=== PATIENT | female | born 1980 | race Two or more races ===

== ENCOUNTER 2016-06-10 12:13 | Emergency (ER) | payer MEDICAID ==
--- NOTE | 2016-06-10 12:58 | ED Physician Chart ---
Chief Complaint/HPI - Patient Information Date Seen:: 06/10/16 Time Seen:: 12:58 Chief Complaint:: BILATERAL KNEE PAIN History of Present Illness:: THIS IS A 36 YO FEMALE WITH A HISTORY OF FALLING ON BOTH KNEES SEVERAL MONTHS AGO. SHE IS NOW HAVING LEFT KNEE PAIN SO BAD THAT SHE CAN WALK ON IT. THE KNEE HAS BEEN SWOLLEN ON AND OFF LATELY. SHE DENIES HYPERTENSION, DIABETES AND HEART DISEASE. SHE STATES THAT FOR MANY YEARS SHE HAS HAD LOWER BACK PAIN. Allergies:: Allergies Allergy/AdvReac Type Severity Reaction Status Date / Time No Known Allergies Allergy Verified 06/10/16 12:50 Historian:: Patient Review:: Nurse's Note Reviewed Review of Systems - Review of Systems General/Constitutional: No fever, No chills, No weight loss, No weakness, No diaphoresis, No edema, No loss of appetite Skin: No skin lesions, No rash, No bruising Head: No headache, No light-headedness Eyes: No loss of vision, No pain, No diplopia ENT: No earache, No nasal drainage, No sore throat, No tinnitus Neck: No neck pain, No swelling, No thyromegaly, No stiffness, No mass noted Cardio Vascular: No chest pain, No palpitations, No PND, No orthopnea, No edema Pulmonary: No SOB, No cough, No sputum, No wheezing GI: No nausea, No vomiting, No diarrhea, No pain, No melena, No hematochezia, No constipation, No hematemesis G/U: No dysuria, No frequency, No hematuria Musculoskeletal: Bone or joint pain (THERE IS PAIN AND SWELLING OF THE LEFT KNEE.), No back pain, No muscle pain Endocrine: No polyuria, No polydipsia Psychiatric: No prior psych history, No depression, No anxiety, No suicidal ideation Hematopoietic: No bruising, No lymphadenopathy Allergic/Immuno: No urticaria, No angioedema Neurological: No syncope, No focal symptoms, No weakness, No paresthesia, No headache, No seizure, No dizziness, No confusion, No vertigo Past Medical History - Past Medical History Obtainable: Yes Past Medical History: Other (BACK PAIN) Family History: None Social History: Smoker, Non Smoker, No Alcohol, No Drug Use Surgical History: None Psychiatricy History: None Medication: Reviewed Family Medical History - Family Member Mother History Unknown: Yes Physical Exam - Physical Examination General/Constitutional: Awake, Well-developed, well-nourished, Alert, No distress, GCS 15, Non-toxic appearing, Ambulatory Head: Atraumatic Eyes: Lids, conjuctiva normal, PERRL, EOMI Skin: Nl inspection, No rash, No skin lesions, No ecchymosis, Well hydrated, No lymphadenopathy ENMT: External ears, nose nl, Nasal exam nl, Lips, teeth, gums nl Neck: Nontender, Full ROM w/o pain, No JVD, No nuchal rigidity, No bruit, No mass, No stridor Respiratory: Nl effort/Exclusion, Clear to Auscultation, No Wheeze/Rhonchi/Rales Cardio Vascular: RRR, No murmur, gallop, rubs, NL S1 S2 GI: No tenderness/rebounding/guarding, No organomegaly, No hernia, Normal BS's, Nondistended, No mass/bruits, No McBurney tenderness : No CVA tenderness Extremities: normal strength in all extremities, No edema, Normal digits & nails Other Extremities comments:: THE LEFT KNEE IS SWOLLEN AND TENDER. THE RANGE OF MOTION IS PAINFUL WITH LIMITED FLEXION AND EXTENSION. Neuro/Psych: Alert/oriented, DTR's symmetric, Normal sensory exam, Normal motor strength, Judgement/insight normal, Mood normal, Normal gait, No focal deficits Misc: normal gait, Normal back, No paraspinal tenderness Labs/Radiology/EKG Results - Radiology Results Results: THERE ARE DEGENERATIVE CHANGES IN BOTH KNEES AND NO LOOSE BODY SEEN. ED Septic Shock - . Is Septic Shock (SBP<90, OR Lactate>4 mmol\L) present?: No Reassessment (Disposition) - Reassessment Reassessment Condition:: Improved - Aftercare/Follow up Instructions Aftercare/Follow-Up Instructions:: Counseled pt regarding lab results/diagnosis & need follow up, Refer to Discharge Instructions, Counseled pt & family regarding lab results/diagnosis & need follow up - Patient Disposition Discharge/Transfer:: Home
--- NOTE | 2016-06-10 16:23 | Diagnostic Imaging Report ---
Left knee (3 views) HISTORY: Pain Minimal spur formation noted about the lateral femoral condyle and the tibial spines. No acute abnormalities. No fractures. IMPRESSION: 1. No acute abnormalities 2. Mild degenerative changes
--- NOTE | 2016-06-10 16:24 | Diagnostic Imaging Report ---
Right knee (3 views) HISTORY: Pain No acute abnormalities. No fractures. Small spur formation noted about the lateral femoral condyle. IMPRESSION: No acute abnormalities
== END 2016-06-10 14:10 | disposition home or self-care (01) ==
LOC: ER 12:13
DX: M12.562 Traumatic arthropathy, left knee (principal); M12.561 Traumatic arthropathy, right knee
CPT/HCPCS: 73562-TC-LT; 73562-TC-RT; 81025-TC; Z7502

== ENCOUNTER 2018-02-24 13:52 | Inpatient (IN) | payer MEDICAID ==
[2018-02-24] MEDS ORDERED: Sodium Chloride 0.9% 1,000 ML IV ONE (14:48)
[2018-02-24 15:07] LABS: % EOSINOPHILS 0.7 % (0.0-5.0); % MONOCYTES 5.5 % (2.0-10.0); % NEUTROPHILS 86.8 % (40.0-80.0); EOSINOPHILE ABSOLUTE 0.1 Th/cmm (0.1-0.4); HEMATOCRIT 37.7 % (41.0-60); HEMOGLOBIN 12.8 gm/dL (12-16); MEAN CORPUSCULAR HEMOGLOBIN 28.5 pg (27.0-31.0); MEAN CORPUSCULAR HGB CONC 33.9 pg (28.0-36.0); MEAN PLATELET VOLUME 9.2 fl; MONOCYTE ABSOLUTE 0.8 Th/cmm (0.3-1.0); NEUTROPHILE ABSOLUTE 12.4 Th/cmm (1.8-8.0); PLATELET COUNT 214 Th/cmm (150-400); RED BLOOD COUNT 4.49 Mil/cmm (3.80-5.10); RED CELL DISTRIBUTION WIDTH 14.7 % (11.5-20.0); WHITE BLOOD COUNT 14.3 Th/cmm (4.8-10.8)
[2018-02-24 15:21] LABS: INR 0.98 (0.5-1.4); PROTHROMBIN TIME (TEST) 10.2 SECONDS (9.5-11.5)
--- NOTE | 2018-02-24 15:43 | ED Physician Chart ---
ED Chief Complaint/HPI - Patient Information Date Seen:: 02/24/18 Time Seen:: 14:50 Chief Complaint:: Fever History of Present Illness:: onset x 3 days of fever, cough, hemoptysis, dyspnea, Abdominal Pain, S/T, and congestion; pt denies trauma, H/As, E/As, C/P, A/N/V/D/C, chills, or urinary s/s Allergies:: Allergies Allergy/AdvReac Type Severity Reaction Status Date / Time No Known Allergies Allergy Verified 06/10/16 12:50 Vitals:: Vital Signs - 8 hr 02/24/18 14:58 Temp 100.2 F HR 104 RR 21 BP 122/90 O2 Sat % 97 Historian:: Patient Review:: Nurse's Note Reviewed, Old Chart Reviewed <Kaiden Schwarz - Last Filed: 02/24/18 17:33> - Patient Information Allergies:: Allergies Allergy/AdvReac Type Severity Reaction Status Date / Time No Known Allergies Allergy Verified 06/10/16 12:50 <Jerel Vila - Last Filed: 02/25/18 08:30> ED Review of Systems - Review of Systems General/Constitutional: Fever, No chills, No weight loss, No weakness, No diaphoresis, No edema, No loss of appetite Skin: No skin lesions, No rash, No bruising Head: No headache, No light-headedness Eyes: No loss of vision, No pain, No diplopia ENT: No earache, Nasal drainage, Sore throat, No tinnitus Neck: No neck pain, No swelling, No thyromegaly, No stiffness, No mass noted Cardio Vascular: No chest pain, No palpitations, No PND, No orthopnea, No edema Pulmonary: SOB, Cough, No sputum, No wheezing GI: No nausea, No vomiting, No diarrhea, Pain, No melena, No hematochezia, No constipation, No hematemesis G/U: No dysuria, No frequency, No hematuria [employer] Tnt: No vaginal discharge, No abnormal vaginal bleed, No contraction Musculoskeletal: No bone or joint pain, No back pain, No muscle pain Endocrine: No polyuria, No polydipsia Psychiatric: No prior psych history, No depression, No anxiety, No suicidal ideation, No homicidal ideation, No auditory hallucination, No visual hallucination Hematopoietic: No bruising, No lymphadenopathy Allergic/Immuno: No urticaria, No angioedema Neurological: No syncope, No focal symptoms, No weakness, No paresthesia, No headache, No seizure, No dizziness, No confusion, No vertigo <Kaiden Schwarz Filed: 02/24/18 17:33> ED Past Medical History - Past Medical History Obtainable: Yes Past Medical History: No significant medical hx Family History: HTN Social History: Non Smoker, No Alcohol, No Drug Use, Surgical History: None Psychiatricy History: None Medication: Reviewed <Kaiden Schwarz Filed: 02/24/18 17:33> Family Medical History - Family Member Mother History Unknown: Yes <Kaiden Schwarz Filed: 02/24/18 17:33> ED Physical Exam - Physical Examination General/Constitutional: Awake, Well-developed, well-nourished, Alert, No distress, GCS 15, Non-toxic appearing, Ambulatory Head: Atraumatic Eyes: Lids, conjuctiva normal, PERRL, EOMI Skin: Nl inspection, No rash, No skin lesions, No ecchymosis, Well hydrated, No lymphadenopathy ENMT: External ears, nose nl, TM canals nl, Nasal exam nl, Lips, teeth, gums nl , Tonsils nl Other ENMT comments:: Pharynx: Injected Neck: Nontender, Full ROM w/o pain, No JVD, No nuchal rigidity, No bruit, No mass, No stridor Respiratory: Nl effort/Exclusion Other Respiratory comments:: Lungs: + Rales and Rhonchi Cardio Vascular: RRR, No murmur, gallop, rubs, NL S1 S2, Carotid/Femoral/Distal pulses equal bilaterally GI: No tenderness/rebounding/guarding, No organomegaly, No hernia, Normal BS's, Nondistended, No mass/bruits, No McBurney tenderness : No CVA tenderness Extremities: No tenderness or effusion, Full ROM, normal strength in all extremities, No edema, Normal digits & nails Neuro/Psych: Alert/oriented, DTR's symmetric, Normal sensory exam, Normal motor strength, Judgement/insight normal, Mood normal, Normal gait, No focal deficits Misc: Normal back, No paraspinal tenderness <Kaiden Schwarz - Last Filed: 02/24/18 17:33> ED Labs/Radiology/EKG Results - Lab Results Results: Laboratory Tests 02/24/18 02/24/18 02/24/18 15:00 15:00 15:00 WBC 14.3 H RBC 4.49 Hgb 12.8 Hct 37.7 L MCV 84.0 MCH 28.5 MCHC Differential 33.9 RDW 14.7 Plt Count 214 MPV 9.2 Neutrophils % 86.8 H Lymphocytes % 7.0 L Monocytes % 5.5 Eosinophils % 0.7 Basophils % 0.0 PT 10.2 INR 0.98 B-Natriuretic Peptide 1030.0 H Serum , Qual 02/24/18 15:00 WBC RBC Hgb Hct MCV MCH MCHC Differential RDW Plt Count MPV Neutrophils % Lymphocytes % Monocytes % Eosinophils % Basophils % PT INR B-Natriuretic Peptide Serum , Qual NEGATIVE - Radiology Results Comments:: CXR: CM; CHF; + Infiltrate; Right Pleural Effusion; + Ileus - EKG Interpretations EKG Time:: 15:31 Rate & Rhythm: 111; ST Comments:: LVH; non-specific st-t changes <Kaiden Schwarz - Last Filed: 02/24/18 17:33> - Lab Results Results: Laboratory Tests 02/24/18 02/24/18 02/24/18 15:00 15:00 15:00 WBC 14.3 H RBC 4.49 Hgb 12.8 Hct 37.7 L MCV 84.0 MCH 28.5 MCHC Differential 33.9 RDW 14.7 Plt Count 214 MPV 9.2 Neutrophils % 86.8 H Lymphocytes % 7.0 L Monocytes % 5.5 Eosinophils % 0.7 Basophils % 0.0 PT 10.2 INR 0.98 D-Dimer 477 H Sodium 139 Potassium 3.6 Chloride 105 Carbon Dioxide 22.6 Anion Gap 15.0 BUN 11 Creatinine 0.6 Est GFR ( Amer) > 60.0 Est GFR (Non-Af Amer) > 60.0 BUN/Creatinine Ratio 18.3 Glucose 107 H Calcium 8.6 Total Bilirubin 1.4 H AST 39 ALT 40 Alkaline Phosphatase 53 Creatine Kinase 1838 H CK-MB (CK-2) 13.9 H Troponin I B-Natriuretic Peptide Total Protein 6.3 Albumin 3.7 Globulin 2.6 Albumin/Globulin Ratio 1.4 Triglycerides 102 Cholesterol 160 LDL Cholesterol Direct 103 HDL Cholesterol 48 Amylase Lipase Serum , Qual Urine Source Urine Color Urine Clarity Urine pH Ur Specific [place] Urine Protein Urine Glucose (UA) Urine Ketones Urine Blood Urine Nitrate Urine Bilirubin Urine Urobilinogen Ur Leukocyte Esterase Urine RBC Urine WBC Ur Epithelial Cells Urine Bacteria Urine Test POC Ur Test 02/24/18 02/24/18 02/24/18 15:00 15:00 15:00 WBC RBC Hgb Hct MCV MCH MCHC Differential RDW Plt Count MPV Neutrophils % Lymphocytes % Monocytes % Eosinophils % Basophils % PT INR D-Dimer Sodium Potassium Chloride Carbon Dioxide Anion Gap BUN Creatinine Est GFR ( Amer) Est GFR (Non-Af Amer) BUN/Creatinine Ratio Glucose Calcium Total Bilirubin AST ALT Alkaline Phosphatase Creatine Kinase CK-MB (CK-2) Troponin I 0.19 H* B-Natriuretic Peptide 1030.0 H Total Protein Albumin Globulin Albumin/Globulin Ratio Triglycerides Cholesterol LDL Cholesterol Direct HDL Cholesterol Amylase 16 L Lipase 5 L Serum , Qual Urine Source Urine Color Urine Clarity Urine pH Ur Specific [place] Urine Protein Urine Glucose (UA) Urine Ketones Urine Blood Urine Nitrate Urine Bilirubin Urine Urobilinogen Ur Leukocyte Esterase Urine RBC Urine WBC Ur Epithelial Cells Urine Bacteria Urine Test POC Ur Test 02/24/18 02/24/18 02/24/18 15:00 15:47 15:47 WBC RBC Hgb Hct MCV MCH MCHC Differential RDW Plt Count MPV Neutrophils % Lymphocytes % Monocytes % Eosinophils % Basophils % PT INR D-Dimer Sodium Potassium Chloride Carbon Dioxide Anion Gap BUN Creatinine Est GFR ( Amer) Est GFR (Non-Af Amer) BUN/Creatinine Ratio Glucose Calcium Total Bilirubin AST ALT Alkaline Phosphatase Creatine Kinase CK-MB (CK-2) Troponin I B-Natriuretic Peptide Total Protein Albumin Globulin Albumin/Globulin Ratio Triglycerides Cholesterol LDL Cholesterol Direct HDL Cholesterol Amylase Lipase Serum , Qual NEGATIVE Urine Source CLEAN C Urine Color YELLOW Urine Clarity CLEAR Urine pH 6.0 Ur Specific [place] 1.020 Urine Protein 100 H Urine Glucose (UA) NEGATIVE Urine Ketones 15 H Urine Blood SMALL H Urine Nitrate NEGATIVE Urine Bilirubin NEGATIVE Urine Urobilinogen 0.2 Ur Leukocyte Esterase TRACE H Urine RBC 2-5 Urine WBC 0-2 Ur Epithelial Cells MODERATE Urine Bacteria 1+ H Urine Test NEGATIVE POC Ur Test 02/24/18 15:52 WBC RBC Hgb Hct MCV MCH MCHC Differential RDW Plt Count MPV Neutrophils % Lymphocytes % Monocytes % Eosinophils % Basophils % PT INR D-Dimer Sodium Potassium Chloride Carbon Dioxide Anion Gap BUN Creatinine Est GFR ( Amer) Est GFR (Non-Af Amer) BUN/Creatinine Ratio Glucose Calcium Total Bilirubin AST ALT Alkaline Phosphatase Creatine Kinase CK-MB (CK-2) Troponin I B-Natriuretic Peptide Total Protein Albumin Globulin Albumin/Globulin Ratio Triglycerides Cholesterol LDL Cholesterol Direct HDL Cholesterol Amylase Lipase Serum , Qual Urine Source Urine Color Urine Clarity Urine pH Ur Specific [place] Urine Protein Urine Glucose (UA) Urine Ketones Urine Blood Urine Nitrate Urine Bilirubin Urine Urobilinogen Ur Leukocyte Esterase Urine RBC Urine WBC Ur Epithelial Cells Urine Bacteria Urine Test POC Ur Test Negative <Jerel Vila - Last Filed: 02/25/18 08:30> ED Septic Shock - . Is Septic Shock (SBP<90, OR Lactate>4 mmol\L) present?: No - <6hrs of presentation: Vital Signs: Vital Signs - 8 hr 02/24/18 14:58 Temp 100.2 F HR 104 RR 21 BP 122/90 O2 Sat % 97 <Kaiden Schwarz - Last Filed: 02/24/18 17:33> - . Is Septic Shock (SBP<90, OR Lactate>4 mmol\L) present?: No <Jerel Vila - Last Filed: 02/25/18 08:30> ED Reassessment (Disposition) - Reassessment Reassessment Condition:: Improved - Diagnosis Diagnosis:: Dx: Abdominal Pain; Pharyngitis; Fever; Bronchitis; CHF; Leukocytosis; Sepsis; UTI; PNA; Pleural Effusion; Ileus - Aftercare/Follow up Instructions Aftercare/Follow-Up Instructions:: Counseled pt regarding lab results/diagnosis & need follow up, Counseled pt & family regarding lab results/diagnosis & need follow up <Kaiden Schwarz - Last Filed: 02/24/18 17:33> - Reassessment Reassessment:: After treatments, patient continued to have cough and abdominal pain. - Patient Disposition Admitting Medical Physician:: Anand Bassett <Jerel Vila - Last Filed: 02/25/18 08:30>
[2018-02-24 15:51] LABS: DDIMER QUANT 477 ng/mL (100-400)
[2018-02-24 15:54] LABS: ALB/GLOB RATIO 1.4 (1.0-1.8); ALBUMIN 3.7 gm/dL (3.7-5.3); ALKALINE PHOSPHATASE 53 U/L (34-104); BILIRUBIN,TOTAL 1.4 mg/dL (0.3-1.0); BUN - UREA NITROGEN 11 mg/dL (7-25); CALCIUM SERUM 8.6 mg/dL (8.6-10.3); CARBON DIOXIDE 22.6 mEq/L (21.0-31.0); CHLORIDE 105 mEq/L (98-107); CHOLESTEROL 160 mg/dL (<200); CREATININE - SERUM 0.6 mg/dL (0.6-1.2); CREATININE KINASE 1838 U/L (30-223); GFR AFRICAN-AMERICAN > 60.0 ml/min (>90); GFR NON AFRICAN-AMERICAN > 60.0 ml/min; GLUCOSE 107 mg/dL (70-105); HDL -HIGH DENSITY LIPOPROTEIN 48 mg/dL (23-92); POTASSIUM SERUM 3.6 mEq/L (3.5-5.1); SGOT 39 U/L (13-39); SGPT/ALT 40 U/L (7-52); SODIUM SERUM 139 mEq/L (136-145); TOTAL PROTEIN,SERUM 6.3 gm/dL (6.0-8.3); TRIGLYCERIDES 102 mg/dL (<150)
[2018-02-24 16:11] LABS: URINE SOURCE CLEAN C
[2018-02-24 16:13] LABS: URINE BILIRUBIN NEGATIVE (NEGATIVE); URINE BLOOD SMALL (NEGATIVE); URINE GLUCOSE (UA) NEGATIVE (NEGATIVE); URINE KETONE 15 mg/dL (NEGATIVE); URINE LEUKOCYTE ESTERASE TRACE (NEGATIVE); URINE MICROSCOPIC INDICATED? YES; URINE NITRATE NEGATIVE (NEGATIVE); URINE PROTEIN 100 mg/dL (NEGATIVE); URINE UROBILINOGEN 0.2 E.U./dL (0.2 - 1.0)
[2018-02-24] MEDS ORDERED: IOHEXOL 350mgI/mL 150mL IV ONE (16:17)
[2018-02-24] MEDS ORDERED: cefTRIAXone 1 GM in Sodium Chloride 0.9% 50 ML IV ONE (16:23)
[2018-02-24 16:30] LABS: URINE CLARITY CLEAR (CLEAR); URINE COLOR YELLOW
[2018-02-24 17:06] LABS: URINE BACTERIA 1+ /hpf (NONE SEEN); URINE EPITHELIAL CELLS MODERATE /lpf (FEW); URINE WBC 0-2 /hpf (0-5)
[2018-02-24 17:59] LABS: AMYLASE SERUM 16 U/L (29-103); LIPASE 5 U/L (11-82)
[2018-02-24] MEDS: guaiFENesin 200 MG/10 ML UDC PO PRN (22:22)
[2018-02-24] MEDS: D5-0.45NS 1,000 ML IV SCH (23:14)
[2018-02-25] MEDS: Albuterol Nebulizer 2.5mg/3mL HHN PRN ×2 (02:13→15:53)
[2018-02-25 05:52] LABS: % BASOPHILS 1.9 % (0.0-2.0); % EOSINOPHILS 1.5 % (0.0-5.0); % LYMPHOCYTES 10.1 % (20.0-50.0); % MONOCYTES 4.8 % (2.0-10.0); % NEUTROPHILS 81.7 % (40.0-80.0); BASOPHILE ABSOLUTE 0.2 Th/cumm (0-0.2); EOSINOPHILE ABSOLUTE 0.2 Th/cmm (0.1-0.4); HEMATOCRIT 34.7 % (41.0-60); HEMOGLOBIN 11.4 gm/dL (12-16); LYMPHOCYTE ABSOLUTE 1.1 Th/cmm (1.5-3.0); MEAN CELL VOLUME 83.6 fl (81-100); MEAN CORPUSCULAR HEMOGLOBIN 27.5 pg (27.0-31.0); MEAN CORPUSCULAR HGB CONC 32.9 pg (28.0-36.0); MEAN PLATELET VOLUME 9.3 fl; MONOCYTE ABSOLUTE 0.5 Th/cmm (0.3-1.0); NEUTROPHILE ABSOLUTE 8.7 Th/cmm (1.8-8.0); PLATELET COUNT 190 Th/cmm (150-400); RED BLOOD COUNT 4.15 Mil/cmm (3.80-5.10)
[2018-02-25 06:02] LABS: WHITE BLOOD COUNT 10.7 Th/cmm (4.8-10.8)
[2018-02-25 06:11] LABS: ALB/GLOB RATIO 1.4 (1.0-1.8); ALBUMIN 3.2 gm/dL (3.7-5.3); ALKALINE PHOSPHATASE 49 U/L (34-104); ANION GAP 11.6 (7.0-16.0); BUN - UREA NITROGEN 9 mg/dL (7-25); CARBON DIOXIDE 23.8 mEq/L (21.0-31.0); CHLORIDE 105 mEq/L (98-107); CREATININE - SERUM 0.6 mg/dL (0.6-1.2); GFR AFRICAN-AMERICAN > 60.0 ml/min (>90); GFR NON AFRICAN-AMERICAN > 60.0 ml/min; GLUCOSE 113 mg/dL (70-105); POTASSIUM SERUM 3.4 mEq/L (3.5-5.1); SGOT 53 U/L (13-39); SGPT/ALT 34 U/L (7-52); SODIUM SERUM 137 mEq/L (136-145); TOTAL PROTEIN,SERUM 5.5 gm/dL (6.0-8.3)
[2018-02-25 06:40] LABS: CREATININE KINASE 5442 U/L (30-223)
[2018-02-25] MEDS: guaiFENesin 200 MG/10 ML UDC PO PRN ×2 (06:44→20:17)
--- NOTE | 2018-02-25 08:06 | Diagnostic Imaging Report ---
CT pulmonary angiogram with intravenous contrast History: Cough Total DLP equals 377 CTDI equals 9.1 Following administration of intravenous contrast, axial sections were obtained from a level above the clavicles down to a level below the diaphragm. The exam demonstrates normal opacification of the main right and left pulmonary arteries. No intraluminal lesions are seen. Specifically, no evidence of pulmonary embolism. There is preservation of normal fat planes throughout the mediastinum. No lymphadenopathy is seen. There is evidence for right-sided pneumonia and effusion. Impression: No evidence of pulmonary emboli. Right-sided pneumonia and effusion.
--- NOTE | 2018-02-25 08:10 | Diagnostic Imaging Report ---
Exam: CT examination abdomen pelvis. HISTORY: Abdominal pain Total DLP equals 282 CTDI equals 12.3 Findings: Multiple contiguous thin section of the abdomen pelvis with obtained from lower thorax to pubic symphysis without administration intravenous or oral contrast material, no prior studies available comparison. The study demonstrates right basilar infiltrate and effusion The liver and spleen are intact. The gallbladder is normal. The kidneys demonstrate no evidence of obstructive uropathy or nephrolithiasis. The study is degraded by motion artifacts. No free fluid is noted in the abdomen. The uterus is intact. There is evidence for left ovarian cyst measuring 2 cm diameter. Small amount of free fluid is noted in cul-de-sac. There is no evidence of diverticulitis. The appendix is not seen. There is evidence for mild distention of small bowel loops the lower abdomen suggestive of mild ileus. Large amount of fecal content is noted in sigmoid colon. IMPRESSION: Limited examination due to motion artifacts Mild ileus Left ovarian cyst, small amount of free fluid in cul-de-sac most likely physiological. Large amount of fecal content in sigmoid colon.
--- NOTE | 2018-02-25 08:34 | Diagnostic Imaging Report ---
CHEST X-RAY: AP view INDICATION: Cough COMPARISON: CT angiogram on 02/24/2018 FINDINGS: Accentuation of the interstitial lung markings are noted. No focal consolidation. There may be a small left effusion. Mild cardiomegaly is noted. Degenerative changes of the spine are noted with scoliosis. IMPRESSION: Accentuation of the interstitial lung markings. A marginal degree of congestion cannot be excluded. Small left effusion. Mild Cardiomegaly.
[2018-02-25] MEDS: D5-0.45NS 1,000 ML IV SCH (13:54)
--- NOTE | 2018-02-25 15:16 | History & Physical ---
ADMIT DATE: 02/24/2018 CHIEF COMPLAINT: Fever and coughing. HISTORY OF PRESENT ILLNESS: This is a 38-year-old female with a history of obesity, admitted through the ER secondary to worsening coughing and shortness of breath. The patient noted to have elevated troponin as well as D-dimer, BNP and advised to be admitted. CT showed pneumonia. PAST MEDICAL HISTORY: As mentioned in history of present illness. PAST SURGICAL HISTORY: Status post hysterectomy. ALLERGIES: No known drug allergies. MEDICATIONS: Advil. FAMILY HISTORY: Denies diabetes or coronary artery disease. SOCIAL HISTORY: Denies tobacco, alcohol or intravenous drug use. The patient is a housewife ____. REVIEW OF SYSTEMS: GENERAL: Complains of not feeling well. HEENT: No blurred vision or eye pain. PULMONARY: As mentioned in history of present illness. HEART: No hypertension or coronary artery disease. ABDOMEN: No nausea, vomiting, pain. GENITOURINARY: The patient denies increased frequency or dysuria. NEUROLOGIC: No headache, seizure or syncope. PSYCHIATRIC: As stated above. PHYSICAL EXAMINATION: VITAL SIGNS: Blood pressure 116/67, respirations 18, pulse 90, temperature 97.6. GENERAL: Young female, morbidly obese. NECK: Supple. No mass. LUNGS: Equal breath sounds, otherwise with few rhonchi. HEART: Regular rate and rhythm. Systolic ejection murmur. ABDOMEN: Soft, globular. EXTREMITIES: Positive excoriation. NEUROLOGIC: Limited. LABORATORY DATA: WBC 14, hemoglobin 11.4, platelets 190. Sodium 137, potassium 3.4, BUN ____, creatinine 0.6, ____. CK was 13.9, troponin 0.22 and 0.19. BNP 1030. CT showed right-sided pneumonia and effusion. ASSESSMENT AND PLAN: Fever, leukocytosis, possible sepsis, obesity, elevated troponin, pneumonia. We will continue the patient on oxygen and bronchodilator treatment. Continue on IV antibiotic and Maxipime. We will refer the patient to Pulmonary. A 2D echocardiogram has been done. We will continue monitoring the patient closely. JOB# [id number]
[2018-02-25 18:49] LABS: INF A SCREEN NEG FOR INF A; INF B SCREEN NEG FOR INF B
[2018-02-25] MEDS ORDERED: Enoxaparin Subq per Pharmacy MC SCH (23:00)
[2018-02-25] MEDS ORDERED: Enoxaparin 100 mg/mL 1mL Syr SUBQ ONE (23:15)
--- NOTE | 2018-02-26 00:54 | Consultation ---
DATE OF CONSULTATION: 02/25/2018 HISTORY OF PRESENT ILLNESS: This 38-year-old female was seen and examined at the courtesy of Dr. Bassett. The patient was admitted through Emergency Room. The patient speaks Georgian only. Information and history obtained from one of her relative. History is that for the last 3-4 weeks, she has not been feeling good, whenever she walks she became short of breath, and epigastric pain. Her physical tolerance was reduced. Then, today she really felt bad as she has been having some shortness of breath, cough with expectoration, so she went to some clinic from where she was referred here. Chest x-ray had shown right pleural effusion and pneumonia. She was evaluated in the Emergency Room. She was found to be in sinus tachycardia. She was admitted. There was no history of chest pains. She has epigastric discomfort and pain, shortness of breath, some swelling of the legs. There was no dizziness. No syncope, no seizures, no history of palpitations. No history of hematemesis, no history of melena, no history of bleeding per rectum, no history of hematuria. PAST MEDICAL HISTORY: Usual childhood diseases. No history of rheumatic fever. No history of scarlet fever. Other past history is not significant except for the 3-4 week history as mentioned above. SOCIAL HISTORY: She is not a smoker, not a drinker. No history of drug abuse. FAMILY HISTORY: Not significant. ALLERGIES: No allergies. PHYSICAL EXAMINATION: VITAL SIGNS: Heart rate was 92, blood pressure is 123/53, temperature 98.2, respirations is 18, O2 saturation 97. SKIN: Normal. HEAD: Normocephalic. EYES: Conjunctivae were pink. There is no icterus in the eyes. Pupils reactive to light. NECK: There was no increased jugular venous distention, no thyromegaly, no lymphadenopathy. Carotids equal on both sides. CHEST: Bilaterally symmetrical, moved well with respiration. Respiratory movements equal both sides. Trachea is central. There is note to percussion. Breath sound, few basilar rales. Occasional rhonchi. CARDIOVASCULAR SYSTEM: PMI not well localized and no positional thrill. No parasternal heave. S1 normal, S2 physiologic. Question of S3, no rub. ABDOMEN: Soft, no tenderness, no rigidity, no guarding, no organomegaly. Bowel sounds normal. CENTRAL NERVOUS SYSTEM: function normal limits. Orientation good. Motor system, reflexes normal. EXTREMITIES: There is some 1-2+ edema, no calf tenderness. Peripheral pulses okay. LABORATORY DATA: Reviewing the labs her TSH was 0.80. Sodium was 137, potassium was 3.4. She was given some potassium supplement after this, chloride 105, CO2 of 23.8, glucose was 113, BUN 9, creatinine 0.6, GFR more than 60, calcium was 8, total protein 5.5, albumin 3.2, globulin 2.3, SGOT 53, SGPT 34, alkaline phosphatase 49. CPK was 5442. CPK-MB 11.1, CK-MB index 0.2. Troponin was 0.19 to 0.21 to 0.23. WBC count was 14.3, hemoglobin 12.8, hematocrit 37.7, MCV 84, MCH 28.5, MCHC 33.9, platelet count was 214. PT/INR was 0.98. BNP was 1030. Serum negative. D-dimer was 477. She had a chest CT angiogram: Accentuation of interstitial lung markings with a marginal degree of congestion, small left effusion, mild cardiomegaly. CT abdomen and pelvis showed limited exam due to motion artifact, mild ileus, left ovarian cyst. A small amount of free fluid in cul-de-sac most likely is physiological. On CT chest angiogram: There was no evidence of pulmonary embolism. There is evidence of right-sided pneumonia and effusion. Echocardiogram was done, which revealed ejection fraction was markedly diminished to 15%, right ventricular systolic pressure was 51.9, left atrial enlargement. Also showed global hypokinesis. EKG showed sinus tachycardia, PACs, possible left ventricular hypertrophy, Q-waves in lead aVL. IMPRESSION: Shortness of breath, some respiratory distress, congestive heart failure, severe left ventricular systolic dysfunction, ejection fraction 15% with global hypokinesis, enlarged left atrium, pulmonary hypertension; mildly elevated troponin level, significance of which is not very clear, could be some degree of myocardial injury or could be just related to congestive heart failure; history of hypertension, hypokalemia was corrected, pulmonary embolism ruled out. DISCUSSION SUGGESTION: The patient is already on IV antibiotics, she is to continue that. We will add Lovenox, pharmacy to dose and discontinue the heparin. We will put on 40 mg Lasix IV with potassium supplements. We will also add lisinopril 5 mg daily, Coreg 6.25 mg b.i.d. with a very close watch on blood pressure and heart rate. Also add aspirin 81 mg daily, add Protonix 40 mg daily. Discontinue heparin when Lovenox is started. We will check the morning BMP, BNP, TSH, T3, T4, and a lipid profile. Also, she should be on some statins. We will add Lipitor 10 mg daily till the results of the lipid profile come back. I have discussed in detail regarding her condition and problem with her and the family, explained to them about it and that she will have to be followed very closely by her network engineering advisor. She will have to be treated optimally with medical management for 3 months. If the EF does not improve, then she will have to get AICD. Also, I think we should rule out coronary artery disease, so we also recommend possibly patient either should get a Lexiscan or a cardiac catheterization. After her acute condition subside, we will also have to add something for her pulmonary hypertension and maybe sildenafil 20 mg t.i.d., but this patient needs to have very close Cardiology followup. JOB# [id number]
[2018-02-26] MEDS: guaiFENesin 200 MG/10 ML UDC PO PRN (02:08)
[2018-02-26 06:51] LABS: % BASOPHILS 0.7 % (0.0-2.0); % EOSINOPHILS 4.2 % (0.0-5.0); % LYMPHOCYTES 21.6 % (20.0-50.0); % MONOCYTES 11.9 % (2.0-10.0); % NEUTROPHILS 61.6 % (40.0-80.0); EOSINOPHILE ABSOLUTE 0.3 Th/cmm (0.1-0.4); HEMATOCRIT 36.5 % (41.0-60); HEMOGLOBIN 11.9 gm/dL (12-16); LYMPHOCYTE ABSOLUTE 1.5 Th/cmm (1.5-3.0); MEAN CELL VOLUME 85.5 fl (81-100); MEAN CORPUSCULAR HEMOGLOBIN 27.9 pg (27.0-31.0); MEAN CORPUSCULAR HGB CONC 32.6 pg (28.0-36.0); MEAN PLATELET VOLUME 10.8 fl; MONOCYTE ABSOLUTE 0.8 Th/cmm (0.3-1.0); NEUTROPHILE ABSOLUTE 4.4 Th/cmm (1.8-8.0); PLATELET COUNT 193 Th/cmm (150-400); RED BLOOD COUNT 4.27 Mil/cmm (3.80-5.10)
[2018-02-26 07:03] LABS: ALB/GLOB RATIO 1.3 (1.0-1.8); ALBUMIN 3.2 gm/dL (3.7-5.3); ALKALINE PHOSPHATASE 61 U/L (34-104); ANION GAP 13.5 (7.0-16.0); BILIRUBIN,TOTAL 0.6 mg/dL (0.3-1.0); BUN - UREA NITROGEN 14 mg/dL (7-25); CALCIUM SERUM 8.4 mg/dL (8.6-10.3); CARBON DIOXIDE 24.2 mEq/L (21.0-31.0); CHLORIDE 105 mEq/L (98-107); CHOLESTEROL 131 mg/dL (<200); CREATININE - SERUM 0.6 mg/dL (0.6-1.2); GFR AFRICAN-AMERICAN > 60.0 ml/min (>90); GFR NON AFRICAN-AMERICAN > 60.0 ml/min; GLUCOSE 82 mg/dL (70-105); HDL -HIGH DENSITY LIPOPROTEIN 44 mg/dL (23-92); POTASSIUM SERUM 3.7 mEq/L (3.5-5.1); SGOT 52 U/L (13-39); SGPT/ALT 36 U/L (7-52); SODIUM SERUM 139 mEq/L (136-145); TOTAL PROTEIN,SERUM 5.7 gm/dL (6.0-8.3); TRIGLYCERIDES 70 mg/dL (<150)
[2018-02-26] MEDS ORDERED: Enoxaparin 100 mg/mL 1mL Syr SUBQ SCH ×2 (07:30→07:45)
[2018-02-26] MEDS ORDERED: Pantoprazole 40 mg EC Tab PO SCH (09:00)
[2018-02-26] MEDS ORDERED: Atorvastatin Calcium 10 MG TAB PO SCH (09:00)
[2018-02-26] MEDS ORDERED: Aspirin 81mg Chewable Tab PO SCH (09:00)
[2018-02-26] MEDS ORDERED: Potassium Chloride 20 mEq ER Tab PO SCH (09:00)
--- NOTE | 2018-02-26 09:20 | Diagnostic Imaging Report ---
CHEST X-RAY: AP view INDICATION: Shortness of breath COMPARISON: 02/24/2018 FINDINGS: Congestive changes and interstitial infiltrates are noted. There may be a small left effusion. Cardiomegaly is noted. IMPRESSION: Congestive changes and interstitial infiltrates. Cardiomegaly.
--- NOTE | 2018-02-26 10:02 | Consultation ---
DATE OF CONSULTATION: 02/25/2018 Thank you very much for this consultation. This is a 38-year-old female with no significant past medical history except for bronchitis on and off. She says she uses inhaler on and off. She presented with cough, congestion and phlegm production and some fever and chills, not feeling better, she was admitted, started on antibiotics and the patient was found to have elevated troponin. Apparently am told by nursing staff that echocardiogram showed some low ejection fraction, some mild elevation of the troponin and cardiac evaluation was requested as well. PAST MEDICAL HISTORY: As above. SOCIAL HISTORY: No smoking, drinking, or drug use. PHYSICAL EXAMINATION: GENERAL: Awake, alert, not in acute distress. VITAL SIGNS: Temperature is 97.8, pulse 87, respiration is 18, blood pressure is 116/67, saturation 99%. HEENT: Atraumatic, normocephalic. Pupils equal and reactive to light and accommodation. Ears, nose and throat normal. NECK: Supple. No JVD. CHEST: There are rhonchi in bases. No wheezing. HEART: Regular in rate and rhythm. ABDOMEN: Soft. No tenderness. EXTREMITIES: No edema. LABORATORY AND DIAGNOSTIC DATA: WBC 10.7 down from 14.3, hemoglobin 11.4, hematocrit 34.7, platelets 190. Sodium 137, potassium 3.4, BUN is 9, creatinine 0.6. Troponin 0.23, AST is 53. Chest x-ray, right lower lobe infiltrate with effusion. IMPRESSION: A 38-year-old female with: 1. Pneumonia and parapneumonic effusion. 2. Possible lung airway disease. 3. Surprisingly cardiomyopathy with very low ejection fraction, elevation in troponin and also the patient has some viral cardiomyopathy, needs to be investigated more with Cardiology evaluation. PLAN: 1. Continue antibiotics. 2. Nebulizer treatment. 3. Will do influenza swabs. 4. Discontinue IV fluids. 5. Cardiac evaluation requested per primary. Thank you very much. We will follow the patient with you. JOB# [id number]
--- NOTE | 2018-02-26 15:45 | Discharge Summary ---
DATE OF DISCHARGE: 02/26/2018 CHIEF COMPLAINT: Fever, cough and phlegm. FINAL DIAGNOSES: Pneumonia, fever, leukocytosis, ischemic cardiomyopathy, ejection fraction 15%, congestive heart failure, severe left ventricular systolic dysfunction, pulmonary hypertension. HISTORY: This is a 38-year-old female with history of obesity, admitted through the Emergency Room secondary to fever and transfer, the patient was diagnosed with pneumonia and admitted for further management. The patient with persistent elevated heart rate. PHYSICAL EXAMINATION: VITAL SIGNS: Blood pressure 140/70, respirations 15, pulse ox 96, temperature 97.1. GENERAL: Mildly obese young female patient who was sent with sister and risk family members at the bedside. NECK: Supple. No mass. LUNGS: Equal breath sounds are with few rhonchi. HEART: Regular rate and rhythm with systolic ejection murmur. ABDOMEN: Soft, globular. EXTREMITIES: Positive excoriation. HOSPITAL COURSE: The patient was admitted to telemetry and started on IV antibiotic and gentle IV hydration. The patient was seen by Cardiology and started on diuretics, aspirin, beta pallavi and angiotensin converting enzyme inhibitor and statin medications. The patient's condition has improved. The patient recommended to follow up her mobile engineer. The patient will need an angiogram, undergo a heart cauterization as well as an AICD placement. This was related with the sister at the bedside as well as the patient and with family members. They will follow with provider [facility] as the patient has Emergency [facility] according to the family. CONDITION ON DISCHARGE: Fair. OVERALL PROGNOSIS: Poor. DISCHARGE INSTRUCTIONS: The patient was prescribed with prescriptions of PCP copy, patient to follow closely with Cardiology Service. The patient . JOB# [id number]
--- NOTE | 2018-03-02 16:13 | Cardiology ---
02/25/[address] Bassett. PROCEDURE: Echocardiogram. M-MODE ECHOCARDIOGRAM: Mitral valve, anterior leaflet of mitral valve shows normal excursion, EF velocity. Posterior leaflet of the mitral valve shows normal excursion. Left ventricular posterior wall shows increased thickness, decreased excursion. Interventricular septum shows increased thickness, decreased excursion, ejection fraction 15%. Left atrium enlarged 4.2 cm. Aortic root shows normal dimension, normal excursion of aortic leaflets. CONCLUSION: Minimal hypertrophy of the left ventricle, cardiomyopathy, ejection fraction 15%, left atrial enlargement. 2D ECHO: Long axis view shows enlarged left ventricular cavity with decreased ejection fraction. Mitral valve shows decreased excursion. Left atrium enlarged. Aortic root shows normal dimension, normal excursion of aortic leaflets. Short axis view of mitral valve normal. Short axis view of aortic valve normal. Apical four chamber view shows enlarged left ventricular cavity with decreased ejection fraction. Left atrium enlargement, right ventricular cavity, right atrium normal, no pericardial effusion. CONCLUSION: Cardiomyopathy, ejection fraction 15%, left atrial enlargement, minimal hypertrophy of the left ventricle. Doppler study shows moderate mitral regurgitation, moderate tricuspid regurgitation, trace pulmonary regurgitation, right ventricular systolic pressure 52 mmHg consistent with mild pulmonary hypertension. JOB# [id number]
== END 2018-02-26 15:30 | disposition home or self-care (01) | DRG 720 ==
LOC: ER 13:52 → MSI 20:15 → TELE 02-25 19:00 → ICU 02-26 00:02
PROVIDERS: ADMIT Internal Medicine; ATTEND Internal Medicine
DX: A41.9 Sepsis, unspecified organism (principal); J18.9 Pneumonia, unspecified organism; I27.20 Pulmonary hypertension, unspecified; I50.20 Unspecified systolic (congestive) heart failure; K56.7 Ileus, unspecified; N39.0 Urinary tract infection, site not specified; J02.9 Acute pharyngitis, unspecified; J40 Bronchitis, not specified as acute or chronic; E87.6 Hypokalemia; I25.5 Ischemic cardiomyopathy; E66.9 Obesity, unspecified; Z68.36 Body mass index [BMI] 36.0-36.9, adult; Z82.49 Family history of ischemic heart disease and other diseases of the circulatory system; Z90.710 Acquired absence of both cervix and uterus
CPT/HCPCS: 36415-UA; 71045-TC; 71275-TC; 80053-TC; 80061-TC; 81001-TC; 81025-TC; 82150-TC; 82550-TC; 82553; 83690-TC; 83735-TC; 83880-TC; 84443-TC; 84484-TC; 84703-TC; 85007-TC; 85025-TC; 85379-TC; 85610-TC; 87086-90; 87804-TC; 93005; 94640; 94760; 96375; 96376; J0692; J0696; J1644; J1650; J1940; J2405; J7030; J7613; Z7610